=== PATIENT | male | born 1960 | race Caucasian/White ===

== ENCOUNTER 2017-12-25 23:17 | Inpatient (IN) | payer BC, OTHER ==
[~2017-12-25] VITALS: Ht 188 cm; Wt 95.3 kg
[2017-12-26] MEDS ORDERED: ONDANSETRON 4 MG/2 ML VIAL IM PRN (00:15)
[2017-12-26] MEDS ORDERED: THIAMINE HCL 200 MG/2 ML VIAL IM ONE (00:15)
[2017-12-26] MEDS ORDERED: BACLOFEN 10MG TABLET PO PRN (00:15)
[2017-12-26] MEDS ORDERED: LORAZEPAM 1 MG TABLET PO PRN (00:15)
[2017-12-26] MEDS ORDERED: MAG HYDROX/AL HYDROX/SIMETH 30 ML LIQUID UDC PO PRN (00:15)
[2017-12-26] MEDS ORDERED: DICYCLOMINE HCL 20 MG TABLET PO PRN (00:15)
[2017-12-26] MEDS ORDERED: IBUPROFEN 400 MG TABLET PO PRN (00:15)
[2017-12-26] MEDS ORDERED: MIRALAX 17 GM POWD.PACK PO PRN (00:15)
[2017-12-26] MEDS ORDERED: LORAZEPAM 2 MG/1 ML VIAL IM PRN (00:15)
[2017-12-26] MEDS ORDERED: ACETAMINOPHEN 325 MG TABLET PO PRN (00:15)
[2017-12-26] MEDS ORDERED: ONDANSETRON ODT 4 MG TAB.RAPDIS SL PRN (00:15)
[2017-12-26] MEDS ORDERED: hydrALAZINE HCL 50 MG TABLET PO PRN (00:15)
[2017-12-26] MEDS ORDERED: LOPERAMIDE HCL 2 MG CAPSULE PO PRN ×2 (00:15)
[2017-12-26] MEDS ORDERED: MAGNESIUM HYDROXIDE 30 ML LIQUID UDC PO PRN (00:15)
[2017-12-26 00:46] LABS: ALANINE AMINOTRANSFERASE 30 U/L (16-63); ALKALINE PHOSPHATASE 137 U/L (50-136); AMYLASE 35 U/L (25-115); ASPARTATE AMINOTRANSFERASE 19 U/L (15-37); BILIRUBIN,TOTAL 1.6 mg/dL (0.2-1.0); CARBON DIOXIDE 31 mmol/L (21-32); CHLORIDE 103 mmol/L (98-107); CREATININE 1.1 mg/dL (0.6-1.3); GLUCOSE 100 mg/dL (74-106); MAGNESIUM 1.9 mg/dL (1.8-2.4); POTASSIUM 3.5 mmol/L (3.5-5.1); TOTAL PROTEIN, SERUM 6.8 g/dL (6.4-8.2); UREA NITROGEN, BLOOD 9 mg/dL (7-18)
[2017-12-26 00:52] LABS: BASOPHILS % (AUTO) 0.3 % (0.0-2.0); EOSINOPHILS # (AUTO) 0.1 K/uL (0.0-0.7); EOSINOPHILS % (AUTO) 0.6 % (0.0-7.0); HEMATOCRIT 42.6 % (36.7-47.1); LYMPHOCYTES # (AUTO) 2.3 K/uL (20.0-40.0); LYMPHOCYTES % (AUTO) 24.2 % (20.5-51.5); MEAN CORPUSCULAR HEMOGLOBIN 31.5 uug (23.8-33.4); MEAN CORPUSCULAR HGB CONC 35 g/dL (32.5-36.3); MEAN CORPUSCULAR VOLUME 89.6 fL (73.0-96.2); MONOCYTES # (AUTO) 0.6 K/uL (2.0-10.0); MONOCYTES % (AUTO) 6.6 % (0.0-11.0); NEUTROPHILS # (AUTO) 6.5 K/uL (1.8-8.9); NEUTROPHILS % (AUTO) 68.3 % (38.5-71.5); PLATELET COUNT (AUTO) 240 K/uL (152-348); RED BLOOD CELL COUNT(AUTO) 4.76 MIL/uL (4.06-5.63); WHITE BLOOD COUNT (AUTO) 9.6 K/uL (3.6-10.2)
[2017-12-26 00:55] LABS: THYROID STIMULATING HORMONE 2.954 mIU/mL (0.358-3.740)
[2017-12-26 00:58] LABS: *AMPHETAMINE, URINE NEGATIVE (NEGATIVE); *BARBITURATE, URINE NEGATIVE (NEGATIVE); *CANNABINOID, URINE NEGATIVE (NEGATIVE); *COCCAINE, URINE NEGATIVE (NEGATIVE); *OPIATE, URINE NEGATIVE (NEGATIVE); *PHENCYCLIDINE SCREEN,URINE NEGATIVE (NEGATIVE)
[2017-12-26 01:11] LABS: ETHANOL < 3 MG/DL (0-0)
[2017-12-26] MEDS: LORAZEPAM 1 MG TABLET PO PRN ×3 (01:14→21:36)
[2017-12-26] MEDS ORDERED: ESCI10TA PO (02:53)
[2017-12-26] MEDS ORDERED: APIX5TAB PO (02:53)
[2017-12-26] MEDS ORDERED: BACL10TA PO (02:53)
[2017-12-26] MEDS ORDERED: HYDR-3895 PO (02:53)
[2017-12-26] MEDS ORDERED: ATOR80TA PO (02:53)
[2017-12-26] MEDS ORDERED: LISI-603 PO (02:53)
[2017-12-26 08:06] VITALS: BP 148/94
[2017-12-26] MEDS: THIAMINE HCL 100 MG TABLET PO SCH (08:35)
[2017-12-26] MEDS: MULTIVITAMINS,THERAPEUTIC TABLET PO SCH (08:35)
[2017-12-26] MEDS: FOLIC ACID 1 MG TABLET PO SCH (08:35)
[2017-12-26] MEDS ORDERED: PATIENT MAY USE OWN MED- MD OK PO SCH (09:00)
[2017-12-26] MEDS: APIXABAN 5 MG TABLET PO SCH ×2 (09:24→16:52)
[2017-12-26] MEDS: LISINOPRIL 20MG TABLET PO SCH (09:25)
[2017-12-26] MEDS: METOPROLOL SUCCINATE XL 50 MG TAB.SR.24H PO SCH (09:25)
[2017-12-26 12:00] VITALS: BP 124/81
[2017-12-26 16:49] VITALS: BP 107/61
[2017-12-26 20:00] VITALS: BP 121/81
[2017-12-26] MEDS: ATORVASTATIN 80 MG PO SCH (21:36)
[2017-12-27] VITALS (7 sets, daily range): BP systolic 112–140; BP diastolic 72–93
[2017-12-27 07:08] LABS: HEPATITIS B SURFACE AG Negative (Negative)
[2017-12-27] MEDS ORDERED: TUBERCULIN,PURIF.PROT.DERIV. 5 TU/0.1 ML TEST ID ONE (09:00)
[2017-12-27] MEDS: LISINOPRIL 20MG TABLET PO SCH (09:11)
[2017-12-27] MEDS: APIXABAN 5 MG TABLET PO SCH ×2 (09:11→16:04)
[2017-12-27] MEDS: LORAZEPAM 1 MG TABLET PO PRN ×3 (09:12→21:26)
[2017-12-27] MEDS: MULTIVITAMINS,THERAPEUTIC TABLET PO SCH (09:12)
[2017-12-27] MEDS: FOLIC ACID 1 MG TABLET PO SCH (09:12)
[2017-12-27] MEDS: THIAMINE HCL 100 MG TABLET PO SCH (09:12)
[2017-12-27] MEDS: METOPROLOL SUCCINATE XL 50 MG TAB.SR.24H PO SCH (09:45)
[2017-12-27] MEDS: ATORVASTATIN 80 MG PO SCH (21:26)
[2017-12-27] MEDS: TRAZODONE 50 MG TABLET PO PRN (23:28)
[2017-12-28] VITALS: BP 123/79
[2017-12-28 04:00] VITALS: BP 118/76
[2017-12-28 08:10] VITALS: BP 124/84
[2017-12-28] MEDS: APIXABAN 5 MG TABLET PO SCH ×2 (08:49→16:37)
[2017-12-28] MEDS: METOPROLOL SUCCINATE XL 50 MG TAB.SR.24H PO SCH (08:50)
[2017-12-28] MEDS: LISINOPRIL 20MG TABLET PO SCH (08:52)
[2017-12-28] MEDS: FOLIC ACID 1 MG TABLET PO SCH (08:52)
[2017-12-28] MEDS: THIAMINE HCL 100 MG TABLET PO SCH (08:52)
[2017-12-28] MEDS: MULTIVITAMINS,THERAPEUTIC TABLET PO SCH (08:52)
[2017-12-28 12:00] VITALS: BP 121/88
[2017-12-28 16:55] VITALS: BP 127/88
[2017-12-28 20:00] VITALS: BP 136/85
[2017-12-28] MEDS ORDERED: HYDROXYZINE PAMOATE 25 MG CAPSULE PO ONE (21:15)
[2017-12-28] MEDS: ATORVASTATIN 80 MG PO SCH (21:24)
[2017-12-28] MEDS: TRAZODONE 50 MG TABLET PO PRN (22:43)
[2017-12-29] VITALS: BP 132/89
[2017-12-29 08:33] VITALS: BP 127/83
[2017-12-29 09:04] VITALS: BP 127/83
[2017-12-29] MEDS: APIXABAN 5 MG TABLET PO SCH (09:04)
[2017-12-29] MEDS: LISINOPRIL 20MG TABLET PO SCH (09:04)
[2017-12-29] MEDS: FOLIC ACID 1 MG TABLET PO SCH (09:04)
[2017-12-29] MEDS: THIAMINE HCL 100 MG TABLET PO SCH (09:04)
[2017-12-29] MEDS: MULTIVITAMINS,THERAPEUTIC TABLET PO SCH (09:04)
[2017-12-29] MEDS: METOPROLOL SUCCINATE XL 50 MG TAB.SR.24H PO SCH (09:04)
== END 2017-12-29 09:48 | disposition other institution (70) | DRG 895 ==
LOC: SRC 23:17
PROVIDERS: ADMIT Internal Medicine; ATTEND Internal Medicine
PROC: HZ2ZZZZ Detoxification Services for Substance Abuse Treatment (ICD-10-PCS; principal; 2017-12-25)
PROC: HZ51ZZZ Individual Psychotherapy for Substance Abuse Treatment, Behavioral (ICD-10-PCS; 2017-12-27)
DX: F10.230 Alcohol dependence with withdrawal, uncomplicated (principal); I69.851 Hemiplegia and hemiparesis following other cerebrovascular disease affecting right dominant side; D68.59 Other primary thrombophilia; Y90.0 Blood alcohol level of less than 20 mg/100 ml; I48.0 Paroxysmal atrial fibrillation; Z91.89 Other specified personal risk factors, not elsewhere classified; Z79.01 Long term (current) use of anticoagulants; E78.5 Hyperlipidemia, unspecified; K70.9 Alcoholic liver disease, unspecified; I10 Essential (primary) hypertension
CPT/HCPCS: 36415; 80307; 83735; 84443; 85025; 86580; 86592; 86705; 86803; 87340; 87806; 93005; 97110; 97112; 97116; 97530; G0480; J3411